=== PATIENT | male | born 1965 | race Two or more races ===

== ENCOUNTER → 2023-10-23 | Outpatient (CLI) | payer MEDICARE ==
[~2023-10-23] VITALS: Ht 177.8 cm; Wt 73.0 kg
[~2023-10-23] MED LIST: AMOX-457 PO; ESCI-8 PO; TRAM50TA5 PO; TRAZ-252 PO
[2023-10-23 10:48] VITALS: BP 120/74; PULSE 89; RESP 19; TEMP 97.8; O2SAT 96
== END | disposition home or self-care (01) ==
LOC: SRCNTR 09:46
PROVIDERS: ATTEND Internal Medicine
DX: G47.00 Insomnia, unspecified (principal); Z79.899 Other long term (current) drug therapy; Z98.890 Other specified postprocedural states
CPT/HCPCS: G0463; Z7500

== ENCOUNTER 2023-11-09 09:02 | Emergency (ER) | payer MEDICARE, OTHER ==
[~2023-11-09] VITALS: Ht 182.9 cm; Wt 87.0 kg
[~2023-11-09 09:02] MED LIST changes: -ESCI-8 PO; -TRAM50TA5 PO; -TRAZ-252 PO
[2023-11-09 09:18] VITALS: BP 147/79; PULSE 102; RESP 21; TEMP 98.2
[2023-11-09 10:16] LABS: HEMATOCRIT 39.7 % (41-53); MEAN CORPUSCULAR HEMOGLOBIN 30.6 pg (26.0-34.0); MEAN CORPUSCULAR HGB CONC 32.6 G/dL (31.0-37.0); MEAN CORPUSCULAR VOLUME 94 fL (80-100); PLATELET COUNT (AUTO) 344 K/uL (150-450); RED BLOOD CELL COUNT(AUTO) 4.24 MIL/uL (4.50-5.90); RED CELL DISTRIBUTION WIDTH 13.6 % (11.5-14.5); WHITE BLOOD COUNT (AUTO) 8.2 K/uL (4.5-11.0)
[2023-11-09 10:28] LABS: ANION GAP 12 mmol/L (8-16); CALCIUM, TOTAL 8.8 mg/dL (8.8-10.5); CARBON DIOXIDE 23 mmol/L (22-29); CHLORIDE 105 mmol/L (98-107); GLOMERULAR FILTR. RATE CALC > 60 mL/min (>60); GLUCOSE,RANDOM 92 mg/dL (70-110); POTASSIUM 3.4 mmol/L (3.5-5.1); SODIUM SERUM 140 mmol/L (136-145); UREA NITROGEN, BLOOD 18 mg/dL (7-18)
[2023-11-09 10:34] LABS: BAND NEUTROPHILS % (MANUAL) 0 % (0-5)
[2023-11-09 10:44] LABS: THYROID STIMULATING HORMONE 0.59 uIU/mL (0.36-3.74)
[2023-11-09 10:52] LABS: LYMPHOCYTES % (MANUAL) 18 % (22-44); MONOCYTES % (MANUAL) 6 % (2-9); SEGMENTED NEUTROPHILS % 76 % (40-70); TOTAL CELLS COUNTED 100
[2023-11-09] MEDS ORDERED: TRAM50TA5 PO (11:29)
[2023-11-09] MEDS ORDERED: ESCI-8 PO (11:29)
[2023-11-09] MEDS ORDERED: TRAZ-252 PO (11:29)
[2023-11-09] MEDS: POTASSIUM CHLORIDE 20 MEQ ER TABLET PO ONE (11:40)
== END 2023-11-09 11:57 | disposition home or self-care (01) ==
LOC: EMS 09:21
DX: H93.13 Tinnitus, bilateral (principal); G47.00 Insomnia, unspecified; E87.6 Hypokalemia; F17.210 Nicotine dependence, cigarettes, uncomplicated
CPT/HCPCS: 80048; 84443; 85025; 99283

== ENCOUNTER 2023-12-10 13:52 | Inpatient (IN) | payer MEDICARE, OTHER ==
[~2023-12-10] VITALS: Ht 177.8 cm; Wt 68.3 kg
[~2023-12-10 13:52] MED LIST changes: -AMOX-457 PO; +ESCI-8 PO; +TRAM50TA5 PO; +TRAZ-252 PO
[2023-12-10 14:33] LABS: BASOPHILS % (AUTO) 0.4 % (0.0-2.0); EOSINOPHILS % (AUTO) 0.9 % (1.0-6.0); HEMATOCRIT 42.9 % (41-53); HEMOGLOBIN 13.8 g/dL (13.5-17.5); LYMPHOCYTES # (AUTO) 1.4 K/uL (1.0-4.8); LYMPHOCYTES % (AUTO) 15.4 % (22.0-44.0); MEAN CORPUSCULAR HEMOGLOBIN 30.3 pg (26.0-34.0); MEAN CORPUSCULAR HGB CONC 32.2 G/dL (31.0-37.0); MEAN CORPUSCULAR VOLUME 94 fL (80-100); MONOCYTES # (AUTO) 0.6 K/uL (0.1-1.0); MONOCYTES % (AUTO) 6.3 % (2.0-9.0); NEUTROPHILS # (AUTO) 6.8 K/uL (1.8-7.7); PLATELET COUNT (AUTO) 374 K/uL (150-450); RED BLOOD CELL COUNT(AUTO) 4.56 MIL/uL (4.50-5.90); RED CELL DISTRIBUTION WIDTH 13.6 % (11.5-14.5); WHITE BLOOD COUNT (AUTO) 8.8 K/uL (4.5-11.0)
[2023-12-10 14:44] LABS: ANION GAP 14 mmol/L (8-16); CARBON DIOXIDE 27 mmol/L (22-29); CHLORIDE 100 mmol/L (98-107); GLOMERULAR FILTR. RATE CALC > 60 mL/min (>60); GLUCOSE,RANDOM 110 mg/dL (70-110); POTASSIUM 3.3 mmol/L (3.5-5.1); SODIUM SERUM 141 mmol/L (136-145); UREA NITROGEN, BLOOD 12 mg/dL (7-18)
[2023-12-10 14:49] LABS: PROTHROMBIN TIME 10.8 SEC (9.4-11.6)
[2023-12-10 14:50] LABS: ALANINE AMINOTRANSFERASE 23 U/L (12-78); ALBUMIN 3.6 g/dL (3.4-5.0); ALKALINE PHOSPHATASE 114 U/L (46-116); ASPARTATE AMINOTRANSFERASE 20 U/L (15-37); BILIRUBIN,TOTAL 0.3 mg/dL (0.1-1.0); TOTAL PROTEIN, SERUM 7.4 g/dL (6.4-8.2)
[2023-12-10 14:52] LABS: TROPONIN I-HIGH SENSITIVITY 6 ng/L (<76)
[2023-12-10] MEDS: ASPIRIN 325 MG TABLET PO ONE (15:35)
[2023-12-10] MEDS: CLOPIDOGREL BISULFATE 75 MG TABLET PO ONE (15:35)
[2023-12-10] MEDS: POTASSIUM CHLORIDE 20 MEQ ER TABLET PO ONE (15:35)
[2023-12-10] MEDS: LORazepam 2 MG/ML VIAL IVP ONE (15:36)
[2023-12-10] MEDS ORDERED: ACETAMINOPHEN 325 MG TABLET PO PRN (16:15)
[2023-12-10] MEDS ORDERED: BISACODYL 10 MG RECTAL RECTAL SUPPOSITORY PR PRN (16:15)
[2023-12-10] MEDS ORDERED: POTASSIUM CHLORIDE 20 MEQ ER TABLET PO PRN (16:15)
[2023-12-10] MEDS ORDERED: POTASSIUM CHL 10 MEQ/WATER 50 ML IV PRN (16:15)
[2023-12-10] MEDS: SODIUM CHLORIDE 0.9% 1,000 ML IV ONE (17:25)
[2023-12-10 19:08] LABS: PH,URINE DRUG SCREEN 7.5 (5.0-8.0)
[2023-12-10 19:17] LABS: ALCOHOL, URINE DRUG SCREEN NEGATIVE (NEGATIVE); AMPHET/METH SCREEN,URINE NEGATIVE (NEGATIVE); BARBITURATE SCREEN, URINE NEGATIVE (NEGATIVE); BENZODIAZEPINES SCREEN,URINE NEGATIVE (NEGATIVE); CANNABINOID SCREEN,URINE NEGATIVE (NEGATIVE); COCAINE SCREEN,URINE NEGATIVE (NEGATIVE); METHADONE SCREEN, URINE NEGATIVE (NEGATIVE); OPIATE SCREEN,URINE NEGATIVE (NEGATIVE); PHENCYCLIDINE SCREEN,URINE NEGATIVE (NEGATIVE)
[2023-12-10 19:22] LABS: APPEARANCE,URINE CLEAR (CLEAR); BILIRUBIN,URINE NEGATIVE (NEGATIVE); COLOR,URINE COLORLESS (YELLOW); GLUCOSE, URINE (UA) NEGATIVE (NEGATIVE); KETONES,URINE NEGATIVE (NEGATIVE); LEUKOCYTE ESTERASE ,URINE NEGATIVE (NEGATIVE); NITRATE,URINE NEGATIVE (NEGATIVE); OCCULT BLOOD,URINE NEGATIVE (NEGATIVE); PH,URINE 7.5 (5.0-8.0); PROTEIN,URINE NEGATIVE (NEGATIVE); SPECIFIC GRAVITIY, URINE 1.041 (1.003-1.030); UROBILINOGEN,URINE <=1.0 mg/dL (<=1.0)
[2023-12-10 20:47] VITALS: BP 127/85; PULSE 81; RESP 16; TEMP 97.5; O2SAT 98
[2023-12-10 21:24] LABS: TROPONIN I-HIGH SENSITIVITY 7 ng/L (<76)
[2023-12-10] MEDS: MELATONIN 5 MG TABLET PO SCH (23:13)
[2023-12-11] VITALS (7 sets, daily range): BP systolic 104–130; BP diastolic 66–87; PULSE 65–85; RESP 17–19; TEMP 97.6–98; O2SAT 95–98
[2023-12-11] MEDS: HEPARIN SODIUM,PORCINE 5,000 UNITS/ML VIAL SQ SCH
[2023-12-11 07:05] LABS: TROPONIN I-HIGH SENSITIVITY 7 ng/L (<76)
[2023-12-11 07:51] LABS: ANION GAP 11 mmol/L (8-16); CALCIUM, TOTAL 7.9 mg/dL (8.8-10.5); CARBON DIOXIDE 24 mmol/L (22-29); CHLORIDE 103 mmol/L (98-107); CREATININE 0.78 mg/dL (0.60-1.30); GLOMERULAR FILTR. RATE CALC > 60 mL/min (>60); GLUCOSE,RANDOM 90 mg/dL (70-110); POTASSIUM 3.8 mmol/L (3.5-5.1); SODIUM SERUM 138 mmol/L (136-145); UREA NITROGEN, BLOOD 10 mg/dL (7-18)
[2023-12-11] MEDS: OxyCODONE HCL/ACETAMINOPHEN 5-325 MG TABLET PO PRN (08:10)
[2023-12-11] MEDS: PANTOPRAZOLE SODIUM 40 MG/VIAL IVP SCH (08:10)
[2023-12-12 01:06] LABS: LDL CHOLESTEROL DIRECT 128 mg/dL (0-99)
[2023-12-12 03:22] VITALS: BP 119/82; PULSE 65; RESP 18; TEMP 97.3; O2SAT 98
[2023-12-12 08:00] VITALS: BP 111/79; PULSE 75; RESP 16; TEMP 97.7; O2SAT 95
[2023-12-12 11:18] VITALS: BP 129/79; PULSE 77; RESP 18; TEMP 97.8; O2SAT 98
[2023-12-12] MEDS ORDERED: ASPI-1444 PO (12:11)
[2023-12-12] MEDS ORDERED: ATOR10TA PO (12:11)
[2023-12-12 15:16] VITALS: BP 136/90; PULSE 75; RESP 18; TEMP 97.7; O2SAT 100
== END 2023-12-12 20:10 | disposition home health service (06) | DRG 69 ==
LOC: EMS 13:52 → EDH 16:15 → 5S 20:44
PROVIDERS: ADMIT Internal Medicine; ATTEND Internal Medicine
DX: G45.9 Transient cerebral ischemic attack, unspecified (principal); G93.89 Other specified disorders of brain; E87.6 Hypokalemia; K40.90 Unilateral inguinal hernia, without obstruction or gangrene, not specified as recurrent; Z79.899 Other long term (current) drug therapy; Z87.891 Personal history of nicotine dependence
CPT/HCPCS: 70496; 70498; 70551; 71045; 80048; 80053; 80307; 81003; 82948; 83721; 84484; 85025; 85610; 85730; 92610; 93005; 93306; 97165; 99291; C9113; G0480; J1644; J2060; 36415-L1; 36415-TC; 70450; 70450-TC

== ENCOUNTER 2023-12-24 18:40 | Emergency (ER) | payer MEDICARE, OTHER ==
[~2023-12-24] VITALS: Ht 177.8 cm; Wt 84.1 kg
[~2023-12-24 18:40] MED LIST changes: +ASPI-1444 PO; +ATOR10TA PO
[2023-12-24 18:41] VITALS: TEMP 98.4
[2023-12-24 19:32] LABS: BASOPHILS % (AUTO) 0.4 % (0.0-2.0); EOSINOPHILS % (AUTO) 0.5 % (1.0-6.0); HEMATOCRIT 40.3 % (41-53); HEMOGLOBIN 13.3 g/dL (13.5-17.5); LYMPHOCYTES # (AUTO) 1.8 K/uL (1.0-4.8); LYMPHOCYTES % (AUTO) 18.3 % (22.0-44.0); MEAN CORPUSCULAR HEMOGLOBIN 30.9 pg (26.0-34.0); MEAN CORPUSCULAR HGB CONC 32.9 G/dL (31.0-37.0); MEAN CORPUSCULAR VOLUME 94 fL (80-100); MONOCYTES # (AUTO) 0.6 K/uL (0.1-1.0); MONOCYTES % (AUTO) 5.8 % (2.0-9.0); NEUTROPHILS # (AUTO) 7.3 K/uL (1.8-7.7); PLATELET COUNT (AUTO) 361 K/uL (150-450); RED BLOOD CELL COUNT(AUTO) 4.29 MIL/uL (4.50-5.90); RED CELL DISTRIBUTION WIDTH 13.6 % (11.5-14.5); WHITE BLOOD COUNT (AUTO) 9.7 K/uL (4.5-11.0)
[2023-12-24 19:35] LABS: CALCIUM, TOTAL 8.8 mg/dL (8.8-10.5); CREATININE 1.27 mg/dL (0.60-1.30); POTASSIUM 3.6 mmol/L (3.5-5.1)
[2023-12-24] MEDS: IBUPROFEN 600 MG TABLET PO ONE (20:21)
[2023-12-24 21:00] VITALS: BP 119/64; PULSE 75; RESP 17; O2SAT 98
[2023-12-24] MEDS ORDERED: IBUP-1492 PO (21:44)
== END 2023-12-24 21:56 | disposition home or self-care (01) ==
LOC: EMS 18:40
DX: R51.9 Headache, unspecified (principal); F17.210 Nicotine dependence, cigarettes, uncomplicated
CPT/HCPCS: 70450; 80048; 85025; 99284